=== PATIENT | male | born 1960 | race Caucasian/White ===

== ENCOUNTER 2019-06-24 05:36 | Day surgery (SDC) | payer OTHER ==
[2019-06-24] MEDS ORDERED: SOD CHLORIDE 0.9% 1,000 ML IV (07:00)
[2019-06-24] MEDS ORDERED: CLINDAMYCIN 600 MG/D5W (PMX) 50 ML IVPB (07:00)
[2019-06-24] MEDS ORDERED: BUPIVACAINE 0.25% (MPF) 30 ML INJ (07:53)
[2019-06-24] MEDS ORDERED: IPRATROPIUM (NEB) 0.5 MG/2.5 ML AMP HHN (08:00)
[2019-06-24] MEDS ORDERED: LABETALOL HCL 20MG INJ IV (08:00)
[2019-06-24] MEDS ORDERED: DIPHENHYDRAMINE 50 MG INJ IV (08:00)
[2019-06-24] MEDS ORDERED: FENTAnyl 50 MCG/ML VIAL IV ×3 (08:00)
[2019-06-24] MEDS ORDERED: OXYCODONE/ACETAMINOPHEN (5/325) TAB PO ×2 (08:00)
[2019-06-24] MEDS ORDERED: MEPERIDINE 25 MG INJ IV (08:00)
[2019-06-24] MEDS ORDERED: EPHEDrine 25 MG/5 ML SYG IV (08:00)
[2019-06-24] MEDS ORDERED: hydrALAzine 20 MG INJ IV (08:00)
[2019-06-24] MEDS ORDERED: ONDANSETRON 4 MG INJ IV (08:00)
[2019-06-24] MEDS ORDERED: HYDROmorphONE 1 MG/5 ML IV SYRINGE IV ×2 (08:00)
[2019-06-24] MEDS ORDERED: MIDAZOLAM 1 MG/ML 2 ML INJ IV (08:00)
[2019-06-24] MEDS ORDERED: TRIMETHOBENZAMIDE 100 MG/ML VIAL IM (08:00)
[2019-06-24] MEDS ORDERED: ALBUTEROL 0.083% (NEB) 2.5 MG/3 ML AMP HHN (08:00)
[2019-06-24] MEDS ORDERED: DEXAMETHASONE 4 MG/ML 5 ML INJ (08:06)
[2019-06-24] MEDS ORDERED: MIDAZOLAM 1 MG/ML 2 ML INJ (08:06)
[2019-06-24] MEDS ORDERED: ROCURONIUM 50 MG INJ (08:06)
[2019-06-24] MEDS ORDERED: CEFAZOLIN 1 GM INJ (08:06)
[2019-06-24] MEDS ORDERED: NEOSTIGMINE 3 MG/3 ML SYRINGE (08:06)
[2019-06-24] MEDS ORDERED: GLYCOPYRROLATE 0.4 MG INJ (08:06)
[2019-06-24] MEDS ORDERED: ONDANSETRON 4 MG INJ (08:06)
[2019-06-24] MEDS ORDERED: PROPOFOL 20 ML (08:06)
[2019-06-24] MEDS ORDERED: FENTAnyl 50 MCG/ML VIAL (08:06)
[2019-06-24] MEDS ORDERED: ROPIVACAINE 0.5 % 30 ML VIAL (08:09)
[2019-06-24] MEDS: POLYMYXIN/BACITRACIN 1L IRRIG IRR (08:46)
[2019-06-24] MEDS: HYDROmorphONE 1 MG/5 ML IV SYRINGE IV (09:48)
[2019-06-24] MEDS: HYDROCODONE/APAP (5/325) TAB PO (10:46)
== END 2019-06-24 11:55 | disposition home or self-care (01) ==
LOC: SDS 05:36
DX: K40.90 Unilateral inguinal hernia, without obstruction or gangrene, not specified as recurrent (principal)
CPT/HCPCS: 49507